=== PATIENT | male | born 1955 | race Caucasian/White ===

== ENCOUNTER 2017-03-21 12:43 | Emergency (ER) | payer OTHER ==
[~2017-03-21] VITALS: Ht 177.8 cm; Wt 91.8 kg
[2017-03-21] MEDS ORDERED: CRES40TA PO (12:50)
[2017-03-21] MEDS ORDERED: ASPI81TA85 PO (12:50)
[2017-03-21] MEDS ORDERED: ATEN25TA PO (12:50)
[2017-03-21] MEDS ORDERED: ASPIRIN 81 MG CHEW TABLET PO ONE (13:30)
[2017-03-21 13:32] LABS: BASO % 0.5 % (0.0-1.0); EOS # 0.2 K/mm3 (0.0-0.50); EOS % 3.3 % (0.0-3.0); LARGE UNSTAINED CELL # 0.2 K/mm3 (0.0-0.4); LARGE UNSTAINED CELL % 2.5 % (0.0-4.0); LYMPH # 2.5 K/mm3 (1.5-4.5); LYMPH % 40.3 % (24.0-44.0); MEAN CORPUSCULAR HEMOGLOBIN 30.5 pg (27.0-33.0); MEAN CORPUSCULAR HGB CONC 33.7 g/dl (32.0-36.5); MEAN CORPUSCULAR VOLUME 90.5 fl (80.0-96.0); MONO # 0.4 K/mm3 (0.0-0.8); MONO % 6.3 % (0.0-5.0); NEUTROPHILS # 2.9 K/mm3 (1.8-7.7); PLATELET COUNT, AUTOMATED 236 k/mm3 (150-450); RED CELL DISTRIBUTION WIDTH 12.5 % (11.5-14.5); WHITE BLOOD COUNT 6.1 K/mm3 (4.0-10.0)
[2017-03-21 13:37] LABS: INR 0.95
--- NOTE | 2017-03-21 13:59 | REP ---
Portable chest x-ray: Single AP view. History: Chest pain. Comparison study April 17, 2014. Findings: EKG monitoring electrodes overlie the chest. The lungs are well inflated and clear. Heart is not enlarged. Pulmonary vasculature is not increased. No significant bony abnormality is seen. Impression: No active disease. Signed by Francisco Tejada MD 03/21/2017 01:50 P
[2017-03-21 14:04] LABS: ALBUMIN 4.5 GM/DL (3.2-5.2); ALBUMIN/GLOBULIN RATIO 1.22 (1.00-1.93); ALKALINE PHOSPHATASE 98 U/L (45-117); ALT/SGPT 29 U/L (12-78); ANION GAP 7 MEQ/L (8-16); AST/SGOT 14 U/L (15-37); BILIRUBIN,DIRECT 0.2 MG/DL (0.0-0.2); BILIRUBIN,TOTAL 0.7 MG/DL (0.2-1.0); BLOOD UREA NITROGEN 10 MG/DL (7-18); CALCIUM LEVEL 9.4 MG/DL (8.8-10.2); CARBON DIOXIDE LEVEL 28 MEQ/L (21-32); CHLORIDE LEVEL 105 MEQ/L (98-107); CREATININE FOR GFR 0.97 MG/DL (0.70-1.30); GLOMERULAR FILTRATION RATE > 60.0 (>49); GLUCOSE, FASTING 96 MG/DL (80-110); SODIUM LEVEL 140 MEQ/L (136-145); TOTAL PROTEIN 8.2 GM/DL (6.4-8.2)
[2017-03-21 19:12] VITALS: BP 133/68
--- NOTE | 2017-03-21 19:35 | ECGEPIP ---
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
--- NOTE | 2017-03-21 19:43 | ECGEPIP ---
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
== END 2017-03-21 19:23 | disposition home or self-care (01) ==
LOC: M ED 12:43
DX: I20.8 Other forms of angina pectoris (principal); I10 Essential (primary) hypertension; Z87.891 Personal history of nicotine dependence